=== PATIENT | male | born 1995 | race Caucasian/White ===

== ENCOUNTER 2019-06-21 11:28 | Emergency (ER) | payer MEDICAID ==
[~2019-06-21] VITALS: Ht 180.3 cm; Wt 74.0 kg
[2019-06-21 11:45] VITALS: BP 124/73
[2019-06-21] MEDS ORDERED: DICYCLOMINE 20 MG TABLET ONE (12:14)
[2019-06-21] MEDS ORDERED: DICYCLOMINE 20 MG TABLET PO ONE (12:30)
[2019-06-21 12:33] LABS: BASOPHILS # (AUTO) 0.02 x10^3/uL (0-0.1); BASOPHILS % (AUTO) 0 % (0-1); EOSINOPHILS # (AUTO) 0.34 x10^3/uL (0-0.4); EOSINOPHILS % (AUTO) 5 % (1-7); LYMPHOCYTES # (AUTO) 1.08 x10^3/uL (1-3.4); LYMPHOCYTES % (AUTO) 15 % (22-44); MD NO; MEAN CORPUSCULAR HEMOGLOBIN 30.1 pg (27.5-34.5); MEAN CORPUSCULAR HGB CONC 32.9 g/dL (33.2-36.2); MEAN CORPUSCULAR VOLUME 91.4 fL (81-97); MEAN PLATELET VOLUME 9.1 fL (7.4-10.4); MONOCYTES # (AUTO) 0.53 x10^3/uL (0.2-0.8); MONOCYTES % (AUTO) 8 % (2-9); NEUTROPHILS % (AUTO) 72 % (42-75); PLATELET COUNT 159 x10^3/uL (130-400); RED BLOOD COUNT 5.13 x10^6/uL (4.38-5.82); RED CELL DISTRIBUTION WIDTH 12.7 % (9.4-14.8)
[2019-06-21 12:47] LABS: ALBUMIN 3.7 g/dL (3.4-5.0); ANION GAP 2 mmol/L (5-15); CALCIUM 8.8 mg/dL (8.5-10.1); CHLORIDE 107 mmol/L (98-107)
--- NOTE | 2019-06-21 12:49 | NUR ---
PT HAS HAD CO OF ABDOMINAL PAIN FOR 1 MONTH. DENIES N/V/D, NO CRAMPING. NO ISSUES VOIDING.
[2019-06-21 12:51] LABS: ALANINE AMINOTRANSFERASE 31 U/L (12-78); ALKALINE PHOSPHATASE 48 U/L (45-117); BILIRUBIN,TOTAL 0.2 mg/dL (0.2-1.0); CREATININE 0.99 mg/dL (0.7-1.3); TOTAL PROTEIN 6.5 g/dL (6.4-8.2)
[2019-06-21 13:00] LABS: MICROSCOPIC NOT IND
[2019-06-21 13:10] LABS: CULTURE INDICATED? NO
--- NOTE | 2019-06-21 13:33 | NUR ---
Patient/Caregiver given discharge instructions and they have confirmed that they understand the instructions. Patient ambulatory with steady gait.
== END 2019-06-21 13:43 | disposition home or self-care (01) ==
LOC: ED 12:16
DX: R10.33 Periumbilical pain (principal); R19.7 Diarrhea, unspecified
CPT/HCPCS: 36415; 74021; 80053; 81003; 83690; 85025; 99284

== ENCOUNTER 2019-12-14 16:07 | Emergency (ER) | payer MEDICAID ==
[~2019-12-14] VITALS: Ht 177.8 cm; Wt 66.6 kg
[2019-12-14 16:09] VITALS: BP 141/88
--- NOTE | 2019-12-14 16:38 | NUR ---
PT STATES HE IS VERY ANXIOUS AND THINGS "FEEL VERY LOUD AROUND HIS FACE" PT STATES HE HAS HAD INTENT TO END HIS LIFE BY "HITTING HIMSELF IN THE FACE". PT COOPERATIVE WITH STAFF AT THIS TIME, VERY ANXIOUS AT THIS TIME. PT TO SECURE RM AT THIS TIME. ERMD IN TO EVAL PT, PENDING PSYCH EVAL
[2019-12-14 16:47] LABS: BASOPHILS # (AUTO) 0.02 x10^3/uL (0-0.1); BASOPHILS % (AUTO) 0 % (0-1); EOSINOPHILS # (AUTO) 0.06 x10^3/uL (0-0.4); EOSINOPHILS % (AUTO) 1 % (1-7); LYMPHOCYTES # (AUTO) 1.06 x10^3/uL (1-3.4); LYMPHOCYTES % (AUTO) 26 % (22-44); MD NO; MEAN CORPUSCULAR HEMOGLOBIN 30.7 pg (27.5-34.5); MEAN CORPUSCULAR HGB CONC 33.7 g/dL (33.2-36.2); MEAN PLATELET VOLUME 8.5 fL (7.4-10.4); MONOCYTES # (AUTO) 0.36 x10^3/uL (0.2-0.8); MONOCYTES % (AUTO) 9 % (2-9); NEUTROPHILS # (AUTO) 2.54 x10^3/uL (1.8-6.8); NEUTROPHILS % (AUTO) 63 % (42-75); PLATELET COUNT 204 x10^3/uL (130-400); RED BLOOD COUNT 5.38 x10^6/uL (4.38-5.82); RED CELL DISTRIBUTION WIDTH 12.6 % (9.4-14.8)
[2019-12-14 16:57] LABS: ALANINE AMINOTRANSFERASE 16 U/L (12-78); ALBUMIN 4.6 g/dL (3.4-5.0); ANION GAP 9 mmol/L (5-15); CALCIUM 9.6 mg/dL (8.5-10.1); CHLORIDE 110 mmol/L (98-107); CREATININE 1.17 mg/dL (0.7-1.3)
[2019-12-14 17:00] LABS: SALICYLATE LEVEL < 1.7 mg/dL (2.8-20.0)
[2019-12-14 17:08] LABS: ALKALINE PHOSPHATASE 45 U/L (45-117); BILIRUBIN,TOTAL 1.5 mg/dL (0.2-1.0); TOTAL PROTEIN 7.6 g/dL (6.4-8.2)
[2019-12-14] MEDS ORDERED: SERTRALINE 50MG TABLET PO ONE (18:00)
[2019-12-14] MEDS ORDERED: PROPRANOLOL 10 MG TABLET PO ONE (18:00)
--- NOTE | 2019-12-14 18:03 | NUR ---
MED REQUEST SENT TO PHARM, WILL MEDICATE PER ORDER THEN PROCEED WITH DC
[2019-12-14] MEDS ORDERED: SERTRALINE 50MG TABLET ONE (18:15)
== END 2019-12-14 18:21 | disposition home or self-care (01) ==
LOC: ED 16:24
DX: F32.9 Major depressive disorder, single episode, unspecified (principal); F41.9 Anxiety disorder, unspecified; R44.0 Auditory hallucinations; R44.1 Visual hallucinations
CPT/HCPCS: 36415; 80053; 80307; 84443; 85025; 99284

== ENCOUNTER 2020-04-24 16:30 | Emergency (ER) | payer MEDICAID ==
[~2020-04-24] VITALS: Ht 165.1 cm; Wt 70.0 kg
[2020-04-24 16:39] VITALS: BP 129/61
--- NOTE | 2020-04-24 16:43 | NUR ---
BIB BY [facility] FROM HOME FOR [employer]ORS (HX OF SAME), ON ZLOFT AND PROPANOLOL DENIES ILLICITS SPEECH TANGENTIAL/HYPERVERBAL "THERE IS SOMETHING IS MY HOUSE AND MY DOESN'T BELIEVE ME."
--- NOTE | 2020-04-24 16:43 | NUR ---
DENIES SI/HI
[2020-04-24 17:31] LABS: BASOPHILS # (AUTO) 0.03 x10^3/uL (0-0.1); BASOPHILS % (AUTO) 0 % (0-1); EOSINOPHILS # (AUTO) 0.23 x10^3/uL (0-0.4); EOSINOPHILS % (AUTO) 4 % (1-7); LYMPHOCYTES # (AUTO) 1.21 x10^3/uL (1-3.4); LYMPHOCYTES % (AUTO) 21 % (22-44); MD NO; MEAN CORPUSCULAR HEMOGLOBIN 30.7 pg (27.5-34.5); MEAN CORPUSCULAR HGB CONC 33.4 g/dL (33.2-36.2); MEAN PLATELET VOLUME 8.7 fL (7.4-10.4); MONOCYTES # (AUTO) 0.35 x10^3/uL (0.2-0.8); MONOCYTES % (AUTO) 6 % (2-9); NEUTROPHILS # (AUTO) 4.07 x10^3/uL (1.8-6.8); NEUTROPHILS % (AUTO) 69 % (42-75); PLATELET COUNT 182 x10^3/uL (130-400); RED CELL DISTRIBUTION WIDTH 12.7 % (9.4-14.8)
[2020-04-24 17:42] LABS: ALBUMIN 4.3 g/dL (3.4-5.0); CALCIUM 9.6 mg/dL (8.5-10.1); CHLORIDE 110 mmol/L (98-107); CREATININE 1.16 mg/dL (0.7-1.3)
[2020-04-24 17:51] LABS: ANION GAP 3 mmol/L (5-15)
[2020-04-24 17:52] LABS: SALICYLATE LEVEL < 1.7 mg/dL (2.8-20.0)
[2020-04-24 17:55] LABS: AMPHETAMINE SCREEN, URINE Negative (Negative); BARBITURATE SCREEN, URINE Negative (Negative); BENZODIAZEPINE SCREEN, URINE Negative (Negative); CANNABINOID SCREEN, URINE Positive (Negative); COCAINE SCREEN, URINE Negative (Negative); METHADONE SCREEN, URINE Negative (Negative); OPIATE SCREEN, URINE Negative (Negative)
--- NOTE | 2020-04-24 18:03 | NUR ---
POC DISCUSSED: PLAN TO HAVE DORMITORY SUPERVISOR ASSESS. NO HOLD PATIENT WAITING PATIENTLY IN ROOM. FREQUENTLY CHECKED ON. BULB GRADER WITH NO CONCERN FOR SI/HI. EMPLOYMENT LAW ATTORNEY UPDATED
--- NOTE | 2020-04-24 18:49 | NUR ---
REPORT TO RHONDA BLAKE
--- NOTE | 2020-04-24 19:04 | NUR ---
Updated pt on poc. Pt somewhat restless, but agreeable to wait on addiction psychiatrist.
--- NOTE | 2020-04-24 19:31 | NUR ---
HOME PERFORMANCE CONSULTANT IN ROOM WITH PT DISCUSSING POC
[2020-04-24] MEDS ORDERED: QUETIAPINE 25MG TABLET ONE (19:59)
[2020-04-24] MEDS ORDERED: QUETIAPINE 25MG TABLET PO ONE (20:00)
--- NOTE | 2020-04-24 20:03 | NUR ---
PT MEDICATED PER EMAR. PT EDUCATED ON MEDICATION AND PRESCRIPTION.
== END 2020-04-24 20:05 | disposition home or self-care (01) ==
LOC: ED 17:13
DX: R44.1 Visual hallucinations (principal)
CPT/HCPCS: 31500; 36415; 80048; 80307; 82040; 85025; 99284

== ENCOUNTER 2020-05-16 14:09 | Emergency (ER) | payer MEDICAID ==
[~2020-05-16] VITALS: Ht 180.3 cm; Wt 77.0 kg
[2020-05-16 14:18] VITALS: BP 120/72
--- NOTE | 2020-05-16 14:30 | NUR ---
BECKA. REPORT RECEIVED FROM EMS. +SI WITH OVERDOSE. DENIES HI. PT TOOK 3 SERTRALINE,1 MIRTAZAPINE, 2 PROPRANOL, 3 SEROQUEL AROUND 12PM TODAY. PT STATED"I FEEL BETTER AND NO MORE SUICIDAL NOW" PT'S AOX4. VSS. ALL MONITORS IN PLACE. CALL LIGHT WITHIN REACH. LEGAL HOLD PLACED BY [facility]. EKG DONE AT BEDSIDE BY EMT.
--- NOTE | 2020-05-16 14:32 | NUR ---
PT'S 'S NUMBER [phone]
--- NOTE | 2020-05-16 14:46 | NUR ---
pt amb to br and back to room with steady gait. urine collected and ua sent.
[2020-05-16 14:57] LABS: BASOPHILS # (AUTO) 0.02 x10^3/uL (0-0.1); BASOPHILS % (AUTO) 1 % (0-1); EOSINOPHILS % (AUTO) 6 % (1-7); LYMPHOCYTES # (AUTO) 1.09 x10^3/uL (1-3.4); LYMPHOCYTES % (AUTO) 32 % (22-44); MD NO; MEAN CORPUSCULAR HEMOGLOBIN 30.4 pg (27.5-34.5); MEAN CORPUSCULAR HGB CONC 33.3 g/dL (33.2-36.2); MEAN CORPUSCULAR VOLUME 91.3 fL (81-97); MEAN PLATELET VOLUME 8.7 fL (7.4-10.4); MONOCYTES # (AUTO) 0.35 x10^3/uL (0.2-0.8); MONOCYTES % (AUTO) 10 % (2-9); NEUTROPHILS # (AUTO) 1.77 x10^3/uL (1.8-6.8); NEUTROPHILS % (AUTO) 52 % (42-75); PLATELET COUNT 160 x10^3/uL (130-400); RED BLOOD COUNT 5.17 x10^6/uL (4.38-5.82); RED CELL DISTRIBUTION WIDTH 13.2 % (9.4-14.8)
[2020-05-16 15:01] LABS: ANION GAP 5 mmol/L (5-15); CALCIUM 9.1 mg/dL (8.5-10.1); CHLORIDE 110 mmol/L (98-107)
[2020-05-16 15:05] LABS: SALICYLATE LEVEL < 1.7 mg/dL (2.8-20.0)
[2020-05-16 15:08] LABS: AMPHETAMINE SCREEN, URINE Negative (Negative); BARBITURATE SCREEN, URINE Negative (Negative); BENZODIAZEPINE SCREEN, URINE Negative (Negative); CANNABINOID SCREEN, URINE Positive (Negative); COCAINE SCREEN, URINE Negative (Negative); OPIATE SCREEN, URINE Negative (Negative)
[2020-05-16 15:08] LABS: CREATININE 0.98 mg/dL (0.7-1.3)
[2020-05-16 15:09] LABS: METHADONE SCREEN, URINE Negative (Negative)
--- NOTE | 2020-05-16 15:11 | NUR ---
BEEF RIBBER AT BEDSIDE AT THIS TIME.
--- NOTE | 2020-05-16 15:52 | NUR ---
Patient given discharge instructions and they have confirmed that they understand the instructions. Patient ambulatory with steady gait.
== END 2020-05-16 15:53 | disposition home or self-care (01) ==
LOC: ED 14:16
DX: F31.9 Bipolar disorder, unspecified (principal); T50.991A Poisoning by other drugs, medicaments and biological substances, accidental (unintentional), initial encounter; R45.851 Suicidal ideations; R94.31 Abnormal electrocardiogram [ECG] [EKG]; Y92.89 Other specified places as the place of occurrence of the external cause
CPT/HCPCS: 36415; 80048; 80307; 82040; 85025; 93005; 99284